=== PATIENT | female | born 1965 | race Caucasian/White ===

== ENCOUNTER 2017-04-07 11:32 | Emergency (ER) | payer OTHER ==
[~2017-04-07] VITALS: Ht 144.8 cm; Wt 86.4 kg
[~2017-04-07 11:32] MED LIST: CHOL10008 PO; CYCL10TA9 PO; INDO25CA PO; LAMO200T PO; LISI-567 PO; MECL12.5 PO; MEDR2.5T PO; OMPR20CCR PO; OXYC1TAB24 PO; ZOV800 PO
[2017-04-07 11:40] VITALS: BP 150/58; PULSE 78; RESP 19; O2SAT 98
[2017-04-07] MEDS ORDERED: 0.9% Sodium Chloride 1,000 ML IV STA (11:47)
[2017-04-07] MEDS ORDERED: Famotidine Inj 20 MG in IV Premix 1 EACH IV ONE (11:50)
[2017-04-07] MEDS ORDERED: MethylprednisoLONE Sodium Succinate 62.5 mg/mL 2 mL Inj IVPUSH ONE (11:50)
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
[2017-04-07 12:28] VITALS: BP 118/74; PULSE 62; RESP 18; O2SAT 99
[2017-04-07] MEDS ORDERED: PRE20 PO (13:30)
[2017-04-07 15:18] VITALS: BP 118/74; PULSE 62; RESP 18; O2SAT 99
== END 2017-04-07 14:00 | disposition home or self-care (01) ==
LOC: SED 11:32
DX: R49.0 Dysphonia (principal); R06.02 Shortness of breath; T50.8X5A Adverse effect of diagnostic agents, initial encounter; Y84.2 Radiological procedure and radiotherapy as the cause of abnormal reaction of the patient, or of later complication, without mention of misadventure at the time of the procedure; Y93.89 Activity, other specified; Y99.8 Other external cause status; Y92.238 Other place in hospital as the place of occurrence of the external cause; I10 Essential (primary) hypertension; K21.9 Gastro-esophageal reflux disease without esophagitis; G40.909 Epilepsy, unspecified, not intractable, without status epilepticus; Z79.84 Long term (current) use of oral hypoglycemic drugs; Z88.8 Allergy status to other drugs, medicaments and biological substances; Z88.0 Allergy status to penicillin; Z88.1 Allergy status to other antibiotic agents
CPT/HCPCS: 93005; 96361; 96374; 96375; 99284; J1200; J2930; J3490; J7030